=== PATIENT | female | born 1980 | race Caucasian/White ===

== ENCOUNTER 2023-07-08 20:57 | Emergency (ER) | payer OTHER ==
[2023-07-08 21:16] VITALS: BP 108/79; PULSE 101; RESP 18; TEMP 97.9; BMI 32.2
[2023-07-08] MEDS ORDERED: ACETAMINOPHEN 325 MG TABLET (FP) PO ONE (21:31)
[2023-07-08] MEDS ORDERED: ACETAMINOPHEN 325 MG TABLET (FP) ONE (21:33)
[2023-07-08 22:02] LABS: THROAT:GRP A STREP DETECTED (NOTDETECTED)
== END 2023-07-08 21:58 | disposition home or self-care (01) ==
LOC: JERFT 20:57
DX: J02.9 Acute pharyngitis, unspecified (principal); R05.9 Cough, unspecified; J06.9 Acute upper respiratory infection, unspecified; U07.1 COVID-19
CPT/HCPCS: 0241U-QW; 87651; 99283-25

== ENCOUNTER 2024-11-17 20:58 | Emergency (ER) | payer OTHER ==
[2024-11-17 21:04] VITALS: BP 100/68; PULSE 78; RESP 20; TEMP 98; BMI 31.3
== END 2024-11-17 22:11 | disposition home or self-care (01) ==
LOC: JERFT 20:58
DX: H00.015 Hordeolum externum left lower eyelid (principal)
CPT/HCPCS: 99283-25